=== PATIENT | female | born 1960 | race Caucasian/White ===

== ENCOUNTER → 2018-04-05 | Outpatient (CLI) | payer OTHER ==
[~2018-04-05] MED LIST: ADDERALL 10 MG10 MG PO; ADULT LOW DOSE81 MG PO; ATORVASTATIN CA20 MG PO; CYCLOBENZAPRINE10 MG PO; LINZESS72 MCG PO; ORPHENADRINE ER PO; PREDNISONE 10 M10 MG PO; PROZAC10 MG PO; THERA M PLUS T1 EAC2 PO; TRAMADOL 50 MG50 MG PO; VITAMIN B-12500 MCG SUBLING; VITAMINC500 PO
[2018-04-05 09:49] LABS: ABSOLUTE EOSINOPHILS 0.1 thou/uL (0.0-0.7); ABSOLUTE LYMPHOCYTES 0.9 thou/uL (0.8-5.3); ABSOLUTE MONOCYTES 0.3 thou/uL (0.0-1.2); BASOPHILS 0.7 %; EOSINOPHILS 1.6 %; HEMATOCRIT 41.8 % (37.0-47.0); LYMPHOCYTES 27.6 %; MCH 33.5 pg (26.0-34.0); MCHC 33.4 g/dL (28.0-37.0); MCV 100.2 fL (80.0-100.0); MONOCYTES 9.1 %; MPV 7.3 fl. (7.2-11.1); NUCLEATED RBCS 0 /100WBC; PLATELET COUNT* 267 thou/uL (150-400); RBC 4.17 mil/uL (4.20-5.00); RDW-CV 13.6 % (10.5-14.5); WBC 3.3 thou/uL (4.0-11.0)
[2018-04-05 10:04] LABS: ALBUMIN 4.2 g/dL (3.4-5.0); ALKALINE PHOSPHATASE 78 U/L (46-116); ANION GAP 7 mmol/L (7-16); BUN 6 mg/dL (7-18); CALCIUM 8.6 mg/dL (8.5-10.1); CHLORIDE 102 mmol/L (98-107); CHOLESTEROL 239 mg/dL (<200); CO2 32 mmol/L (21-32); CREATININE 0.7 mg/dL (0.6-1.3); GLUCOSE 80 mg/dL (70-99); HDL CHOLESTEROL 96 mg/dL (>40); LDL CHOLESTEROL 135 mg/dL (<100); POTASSIUM 3.8 mmol/L (3.5-5.1); SGOT 61 U/L (15-37); SGPT 74 U/L (30-65); SODIUM 141 mmol/L (136-145); TC:HDL 2.5 Ratio (Not establshd); TOTAL BILIRUBIN 0.3 mg/dL (<0.1-1.0); TOTAL PROTEIN 7.6 g/dL (6.4-8.2); TRIGLYCERIDE 40 mg/dL (<150); VLDL 8 mg/dL (<40)
[2018-04-05 10:08] LABS: SERUM ASSESSMENT Clear
[2018-04-06 02:06] LABS: HEPATITIS B SURFACE AG Negative (Negative)
== END ==
LOC: M.LAB 09:12
PROVIDERS: Family Medicine
DX: R07.9 Chest pain, unspecified (principal); R05 Cough; F41.1 Generalized anxiety disorder

== ENCOUNTER → 2018-04-10 | Outpatient (CLI) | payer OTHER | LOC: M.ULTRA 07:22 | DX: Z12.31 Encounter for screening mammogram for malignant neoplasm of breast (principal); R79.89 Other specified abnormal findings of blood chemistry; R74.8 Abnormal levels of other serum enzymes ==

== ENCOUNTER → 2018-04-10 | Outpatient (CLI) | payer OTHER | LOC: M.CT 07:27 | DX: Z13.6 Encounter for screening for cardiovascular disorders (principal) ==

== ENCOUNTER → 2018-05-23 | Outpatient (CLI) | payer OTHER ==
[2018-05-23 15:53] LABS: ALBUMIN 4.4 g/dL (3.4-5.0); DIRECT BILIRUBIN 0.1 mg/dL (<0.1-0.3); TOTAL BILIRUBIN 0.3 mg/dL (<0.1-1.0); TOTAL PROTEIN 7.7 g/dL (6.4-8.2)
== END ==
LOC: M.LAB 15:25
PROVIDERS: Family Medicine
DX: R74.8 Abnormal levels of other serum enzymes (principal)

== ENCOUNTER 2018-06-12 11:27 | Inpatient (IN) | payer OTHER ==
[~2018-06-12] VITALS: Ht 170.2 cm; Wt 69.5 kg
[2018-06-12 11:32] VITALS: BP 158/89
[2018-06-12] MEDS ORDERED: PREDNISONE 10 M10 MG PO (11:36)
[2018-06-12] MEDS ORDERED: ORPHENADRINE ER PO (11:37)
[2018-06-12 12:01] LABS: ABSOLUTE LYMPHOCYTES 1.2 thou/uL (0.8-5.3); ABSOLUTE MONOCYTES 0.9 thou/uL (0.0-1.2); ABSOLUTE NEUTROPHILS 5.3 thou/uL (1.6-8.1); BASOPHILS 0.5 %; EOSINOPHILS 0.3 %; HEMATOCRIT 47.1 % (37.0-47.0); HEMOGLOBIN 15.7 gm/dL (12.0-15.0); LYMPHOCYTES 15.9 %; MCH 33.6 pg (26.0-34.0); MCHC 33.4 g/dL (28.0-37.0); MCV 100.7 fL (80.0-100.0); MONOCYTES 11.8 %; NUCLEATED RBCS 0 /100WBC; PLATELET COUNT* 340 thou/uL (150-400); POLYS 71.5 %; RBC 4.68 mil/uL (4.20-5.00); RDW-CV 13.2 % (10.5-14.5); WBC 7.5 thou/uL (4.0-11.0)
[2018-06-12 12:13] LABS: PROTIME 10.1 Seconds (9.20-11.50)
[2018-06-12 12:14] LABS: CALCIUM 9.4 mg/dL (8.5-10.1); CREATININE 0.8 mg/dL (0.6-1.3); POTASSIUM 3.6 mmol/L (3.5-5.1)
[2018-06-12 12:20] LABS: ALBUMIN 4.4 g/dL (3.4-5.0); TOTAL BILIRUBIN 0.4 mg/dL (<0.1-1.0); TOTAL PROTEIN 8.2 g/dL (6.4-8.2); TROPONIN-I LEVEL 0.07 ng/mL (<0.06)
[2018-06-12 13:00] LABS: URINE BILIRUBIN NEGATIVE (Negative); URINE BLOOD NEGATIVE (Negative); URINE CLARITY CLEAR; URINE COLOR YELLOW; URINE GLUCOSE-RANDOM NEGATIVE (Negative); URINE KETONES NEGATIVE (Negative); URINE LEUKOCYTES-REFLEX 1+ (Negative); URINE NITRITE-REFLEX NEGATIVE (Negative); URINE PROTEIN NEGATIVE (Negative); URINE SPECIFIC GRAVITY 1.015 (1.005-1.030); URINE UROBILINOGEN 0.2 E.U./dl (0.2-1.0)
[2018-06-12 13:12] LABS: SQUAMOUS 0-3 Few /LPF (0-3); URINE WBC-REFLEX 0-5 Rare /HPF (0-5)
[2018-06-12 13:13] LABS: BACTERIA-REFLEX None Seen /HPF (None Seen); CRYSTALS None Seen /LPF (None Seen); HYALINE CASTS 0-3 Few /LPF (None Seen); MUCUS 0-3 Light strn/LPF (None Seen); URINE RBC 0-2 Rare /HPF (0-2)
[2018-06-12 13:28] VITALS: BP 154/78
[2018-06-12 13:50] VITALS: BP 157/83
[2018-06-12 14:00] VITALS: BP 164/84
[2018-06-12] MEDS ORDERED: TRAMADOL 50 MG50 MG PO (14:42)
[2018-06-12] MEDS ORDERED: VITAMIN B-12500 MCG SUBLING (14:43)
[2018-06-12] MEDS ORDERED: ADDERALL 10 MG10 MG PO (14:44)
[2018-06-12] MEDS ORDERED: PROZAC10 MG PO (14:45)
[2018-06-12] MEDS ORDERED: VITAMINC500 PO (14:45)
--- NOTE | 2018-06-12 17:02 | EKG ---
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: : 1960 Requested By: Harpreet Hui Order Number: [id number] MD: Manuel Canchola Measurements Intervals [place] Rate: 79 P: 67 SD: 146 QRS: 45 QRSD: 82 T: 36 QT: 367 QTc: 421 Interpretive Statements Sinus rhythm Probable left atrial enlargement Baseline wander in lead(s) V6 No previous ECG available for comparison Electronically Signed On 06-12-2018 17:02:24 CDT by Manuel Canchola [email or web address] <ELECTRONICALLY SIGNED> By: Manuel Canchola MD, [facility] 06/12/18 1702 1138 113 Manuel Canchola MD, [facility] /EPI
[2018-06-12 20:00] VITALS: BP 131/80
[2018-06-12] MEDS ORDERED: LINZESS72 MCG PO (20:12)
[2018-06-13] VITALS: BP 137/78
[2018-06-13 04:00] VITALS: BP 140/87
[2018-06-13 08:15] VITALS: BP 132/81
[2018-06-13 11:25] LABS: ANION GAP 4 mmol/L (7-16); BUN 17 mg/dL (7-18); CALCIUM 8.1 mg/dL (8.5-10.1); CHLORIDE 102 mmol/L (98-107); CHOLESTEROL 209 mg/dL (<200); CO2 30 mmol/L (21-32); CREATININE 0.7 mg/dL (0.6-1.3); GLUCOSE 85 mg/dL (70-99); HDL CHOLESTEROL 73 mg/dL (>40); LDL CHOLESTEROL 123 mg/dL (<100); MAGNESIUM 2.2 mg/dL (1.8-2.4); PHOSPHORUS* 3.2 mg/dL (2.5-4.9); POTASSIUM 3.2 mmol/L (3.5-5.1); SODIUM 136 mmol/L (136-145); TC:HDL 2.9 Ratio (Not establshd); TRIGLYCERIDE 69 mg/dL (<150); VLDL 14 mg/dL (<40)
[2018-06-13 11:26] LABS: SERUM ASSESSMENT Clear
[2018-06-13 12:22] VITALS: BP 123/70
[2018-06-13 16:04] VITALS: BP 122/71
--- NOTE | 2018-06-13 17:11 | 2DMMODE ---
[place] [address] 2 D/M-MODE ECHOCARDIOGRAM Name: ISMAEL LAROSE Room: [place] [address] ADM IN Geraldine#: [id number] Admission: 06/12/18 Attend Phys: Sameer Olguin Discharge: Date of : 62 Date of Service: 06/13/18 1711 Report #: [id number] THIS REPORT FOR: //name// APPROVED REPORT Study performed: 06/13/2018 15:16:30 EXAM: Comprehensive 2D, Doppler, and color-flow Echocardiogram Patient Location: In-Patient Room #: [facility] Status: routine BSA: 1.80 HR: 93 bpm BP: 123/70 mmHg Rhythm: NSR Other Information Study Quality: Good Indications CVA/TIA Echo Enhancing Agent Indication: Rule out Shunt Agent(s) / Amount(s) Used: Agitated Saline 10 cc 2D Dimensions IVSd: 13.37 (7-11mm) LVOT Diam: 21.53 (18-24mm) LVDd: 32.89 mm PWd: 11.61 (7-11mm) Ascending Ao: 30.46 (22-36mm) LVDs: 22.45 (25-40mm) Aortic Root: 31.34 mm Volumes Left Atrial Volume (Systole) LA ESV Index: 14.70 mL/m2 Aortic Valve AoV Peak Galileo.: 1.38 m/s AO Peak Gr.: 7.56 mmHg LVOT Max P.26 mmHg AO Mean Gr.: 4.03 mmHg LVOT Mean P.26 mmHg LVOT Max V: 1.35 m/s AO V2 VTI: 21.65 cm LVOT Mean V: 0.81 m/s MEETA (VTI): 3.74 cm2 LVOT V1 VTI: 22.23 [place] [address] 2 D/M-MODE ECHOCARDIOGRAM Name: ISMAEL LAROSE Room: [address] IN .R.#: [id number] Admission: 06/12/18 Attend Phys: Sameer Olguin Discharge: Date of : 62 Date of Service: 06/13/18 1711 Report #: [id number] Mitral Valve E/A Ratio: 1.04 MV Decel. Time: 169.90 ms MV E Max Galileo.: 0.59 m/s MV PHT: 49.27 ms MVA (PHT): 4.47 cm2 TDI E/Lateral E': 5.36 E/Medial E': 6.56 Medial E' Galileo.: 0.09 m/s Lateral E' Galileo.: 0.11 m/s Pulmonary Valve PV Peak Galileo.: 1.09 m/s PV Peak Gr.: 4.73 mmHg Left Ventricle The left ventricle is normal size. There is normal LV segmental wall motion. Mild concentric left ventricular hypertrophy. Left ventricular systolic function is normal. The left ventricular ejection fraction is within the normal range. LVEF is 60-65%. The left ventricular diastolic function is normal. Right Ventricle The right ventricle is normal size. The right ventricular systolic function is normal. Atria The left atrium size is normal. Interatrial septum is intact without evidence of ASD or PFO.negative bubble study The right atrium size is normal. Aortic Valve The aortic valve is normal in structure. No aortic regurgitation is present. There is no aortic valvular stenosis. Mitral Valve The mitral valve is normal in structure. There is no mitral valve regurgitation noted. No evidence of mitral valve stenosis. Tricuspid Valve The tricuspid valve is normal in structure. Trace tricuspid regurgitation. Unable to assess PA pressure. Pulmonic Valve The pulmonary valve is normal in structure. There is no pulmonic [place] [address] 2 D/M-MODE ECHOCARDIOGRAM Name: JOCELYNESHAYISMAEL Room: [address] IN .R.#: [id number] Admission: 06/12/18 Attend Phys: Sameer Olguin Discharge: Date of : 62 Date of Service: 06/13/18 1711 Report #: [id number] Great Vessels The aortic root is normal in size. IVC is normal in size and collapses >50% with inspiration. Pericardium There is no pericardial effusion. <Conclusion> LVEF is 60-65%. There is normal LV segmental wall motion. There is no aortic valvular stenosis. No aortic regurgitation is present. Interatrial septum is intact without evidence of ASD or PFO.negative bubble study <ELECTRONICALLY SIGNED> By: Vikas Mitchell MD, FACC 06/13/181710 10 10 Vikas Mitchell MD, FACC /INF
[2018-06-14] VITALS: BP 124/81
[2018-06-14 04:00] VITALS: BP 140/86
[2018-06-14 08:00] VITALS: BP 130/77
[2018-06-14] MEDS ORDERED: CYCLOBENZAPRINE10 MG PO (11:32)
[2018-06-14] MEDS ORDERED: ADULT LOW DOSE81 MG PO (11:33)
[2018-06-14] MEDS ORDERED: ATORVASTATIN CA20 MG PO (11:33)
[2018-06-14] MEDS ORDERED: THERA M PLUS T1 EAC2 PO (11:34)
[2018-06-14 12:36] VITALS: BP 118/70
[2018-06-14 13:16] VITALS: BP 118/70
--- NOTE | 2018-06-14 19:14 | CON ---
[address] [address] CONSULTATION Name: JOCELYNESHAYISMAEL Rupinder Room: [address] IN M.R.#: [id number] Admission: 06/12/18 Attend Phys: Hamzah Hernández Discharge: 06/14/18 Date of : 62 Report #: [id number] THIS REPORT FOR: //name// CC: Marija Suha Olguin DATE OF SERVICE: 06/12/2018 HISTORY OF PRESENT ILLNESS: This is a 58-year-old female patient who was evaluated by me for an episode of speech difficulty. History is poorly defined. It looks like she was able to speak throughout the record, but the word was just not coming out properly. It lasted a few hours. It came spontaneously, then resolved spontaneously. She is on multiple psychotropic medications. She is on Prozac for a long time. She is on Adderall for a year and a half and recently she developed pain in the neck, which radiates down to the right upper extremity and she was given tramadol. REVIEW OF SYSTEMS: Indicate that she has pain in the neck, which radiates down to the right upper extremity. She had speech difficulty. She is on multiple medications as summarized above, these are the psychotropic medication. She never had this kind of symptom before. She has no history of migraine headache. A 14-point review of systems was carried out and appears mostly noncontributory. PAST MEDICAL HISTORY: Positive for attention deficit disorder and depression. FAMILY HISTORY: Negative for early age stroke. SOCIAL HISTORY: The history I got from her was different than summarized in the patient's note, so I have to go and ask her again. PHYSICAL EXAMINATION: Indicate the patient is alert, responsive, able to follow simple and complex commands. Cranial nerve examination 2-12 is unremarkable. Strength, sensation, reflexes and tone is symmetrical. There is no meningeal sign in this patient. I could not look at the patient's fundus. The patient is moderately built individual. She does not have any dysmorphic features of eyes, ears and face. Her blood pressure is 164/84, respirations 16, pulse is 71, temperature is 98.5. CT scan of the head was unremarkable. IMPRESSION: This patient presents with the symptoms, which can be transient ischemic attack or some focal seizure. She is on multiple psychotropic medications. That question needs to be addressed in this patient. It looks like she is going to get a banana bag. These kind of symptoms can occur when psychotropic medication are mixed with alcohol, especially when she is taking multiple psychotropic medications, many of [place] [address] CONSULTATION Name: THUANSRIDHARISMAEL Rupinder Room: [address] IN M.R.#: [id number] Admission: 06/12/18 Attend Phys: Hamzah Hernández Discharge: 06/14/18 Date of : 62 Report #: [id number] RECOMMENDATIONS: 1. We will get a carotid Doppler done. 2. MRI is already ordered. 3. We will get a TSH, vitamin B12 done. 5. We will await this workup and go from here. Thank you very much for this referral and if you have any question, please feel free to contact me. <ELECTRONICALLY SIGNED> By: Barrett Ramires MD 06/14/18 1914 1626 [id number] Ramires MD /nt
--- NOTE | 2018-06-14 19:14 | EEG ---
[address] [address] EEG STUDY REPORT Name: ISMAEL LAROSE Room: [address] IN M.R.#: [id number] Admission: 06/12/18 Attend Phys: Hamzah Hernández Discharge: 06/14/18 Date of : 62 Report #: [id number] THIS REPORT FOR: //name// CC: Marija Suha Olguin DATE OF SERVICE: 06/13/2018 This patient is being evaluated for an episode of speech difficulty. EEG is masked by a lot of muscle artifact because the patient is unable to relax. That makes the interpretation of this EEG difficult. Background activity does appear to be about 9 Hz and 30 microvolts. The patient became drowsy that is associated with bilateral slowing and vertex sharp waves. Photic stimulation is unremarkable. No active epileptiform activity was noticed during this record. IMPRESSION: Difficult to interpret this electroencephalogram because a lot of muscle artifact is present. No active epileptiform activity appeared to be present. Thank you very much for this referral. <ELECTRONICALLY SIGNED> By: Barrett Ramires MD 06/14/18 1914 1559 [id number] Ramires MD /nt
== END 2018-06-14 14:40 | disposition home or self-care (01) | DRG 69 ==
LOC: M.ERS 11:27 → M.TBA-ER 12:28 → M.2W 12:28
PROVIDERS: Family Medicine; ADMIT Internal Medicine
DX: G45.9 Transient cerebral ischemic attack, unspecified (principal); N39.0 Urinary tract infection, site not specified; F32.9 Major depressive disorder, single episode, unspecified; F41.9 Anxiety disorder, unspecified; F17.290 Nicotine dependence, other tobacco product, uncomplicated; G62.1 Alcoholic polyneuropathy; T50.905A Adverse effect of unspecified drugs, medicaments and biological substances, initial encounter; I05.0 Rheumatic mitral stenosis; E87.6 Hypokalemia; F10.10 Alcohol abuse, uncomplicated; Z79.82 Long term (current) use of aspirin; Z79.899 Other long term (current) drug therapy

== ENCOUNTER → 2018-06-26 | Outpatient (CLI) | payer OTHER | LOC: M.RAD 11:38 | DX: M47.22 Other spondylosis with radiculopathy, cervical region (principal); M43.12 Spondylolisthesis, cervical region ==

== ENCOUNTER → 2018-07-02 | Outpatient (CLI) | payer OTHER | LOC: M.MRI 16:02 | DX: M50.123 Cervical disc disorder at C6-C7 level with radiculopathy (principal); M48.02 Spinal stenosis, cervical region ==

== ENCOUNTER → 2018-08-06 | Outpatient (CLI) | payer OTHER ==
[~2018-08-06] MED LIST changes: +B12INJ PO; -PROZAC10 MG PO; +PROZAC20 MG PO; +ZYRTEC10 M5 PO
--- NOTE | ~2018-08-06 | PAINCON ---
[address] [address] PAIN MANAGEMENT CONSULTATION Name: CHRISTENSENISMAEL J [id number] Admission: 08/06/18 Attend Phys: Justin Copeland MD Discharge: Date of : 62 Report #: [id number] THIS REPORT FOR: //name// CC: Marija Copeland DATE OF SERVICE: 08/06/2018 CHIEF COMPLAINT: Neck pain. HISTORY OF PRESENT ILLNESS: The patient is a 58-year-old female who has been referred to the pain clinic for evaluation. The patient has been experiencing pain in her right arm as well as her right shoulder. This has been problematic since May of this year. She has noticed some weakness in this arm. States that it falls asleep. She has pain, which she describes as quite severe. Notes that the pain radiates down into her arm and down into her fingers. She has tried tramadol. She has also tried nonsteroidal anti-inflammatory medications with little overall benefit. She admits to an intermittent dizziness when she sits up from lying down. This has been going on for a number of years. She has been evaluated for possible transient ischemic attack. The patient has not had surgery on her neck. Describes her discomfort as continuous, constant, shooting, aching, throbbing, sharp and stabbing. Rates it as an 8/10 today, can rise to a level of 9/10, depend on her level of activity. Also, does note some pain and discomfort in the right scapular area as well. ALLERGIES: THE PATIENT HAS LISTED TRAMADOL AN ALLERGY. TRAMADOL -- CAUSE HER HEAD SPIN. CURRENT MEDICATIONS: Adderall 10 mg b.i.d., aspirin 81 mg, Zyrtec 10 mg, Prozac 20 mg, vitamin B12 1000 mg. PAST MEDICAL HISTORY: 1. Right arm pain secondary to pinched nerve. 2. Anxiety. 3. Depression. 4. Attention deficit hyperactivity disorder, predominantly inattentive type. 5. Chronic sinusitis. 6. Colon polyps. 7. Attention deficit disorder. 8. Anxiety disorder. PAST SURGICAL HISTORY: Appendectomy, colonoscopy. 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 REVIEW OF SYSTEMS: Generally in good health, numbness [place] [address] PAIN MANAGEMENT CONSULTATION Name: ISMAEL CHRISTENSEN Rupinder Room: [facility]#: [id number] Admission: 08/06/18 Attend Phys: Justin Copeland MD Discharge: Date of : 62 Report #: [id number] LABORATORY DATA: 1. MRI of the cervical spine dated 07/02/2018, C4-C5, no disk protrusion, canal stenosis or foraminal narrowing, unchanged. C5/C6 minimal broad-based disk bulge with foraminal component likely causing mild bilateral foraminal narrowing, unchanged. 2. C6-C7. Small broad-based disk bulge with a superimposed right foraminal protrusion that causes moderate right-sided foraminal narrowing. 3. C7/T1 no disk protrusion canal stenosis or foraminal narrowing. PAIN CLINIC ASSESSMENT/PQRS: 1. The patient is not being treated for rheumatoid arthritis or osteoarthritis. 2. Height 5 feet 7 inches, weight 149 pounds, BMI is 23. 3. Vital Signs: Blood pressure 135/74, heart rate 74, respiratory rate 16, room air saturation is 98%, temperature 98.2. 4. Pain score 8/10. 5. Fall risk. The patient has not fallen in the last 3 months. 6. Blood thinner. The patient is not on a blood thinning medication. 7. Hypertension. The patient has not been treated for hypertension. 8. Opioid greater than 6 weeks. The patient is not on an opioid medication. 9. Risk assessment tool, low for opioid use. 10. Functional assessment tool 49/70. 11. Recreational drug use. The patient denies use of recreational drugs. 12. Tobacco: The patient denies use of tobacco. 13. Alcohol: The patient uses alcohol occasionally. PHYSICAL EXAMINATION: GENERAL: The patient is a well-developed, well-nourished white female. Appears her stated age. She is alert and oriented x3. Affect is appropriate. Speech is fluent. HEAD, EYES, EARS, NOSE, AND THROAT: Normocephalic, atraumatic. Extraocular muscles intact. Sclerae nonicteric. Mucous membranes are moist. NECK: Without adenopathy or JVD. The patient has pain and discomfort in the right shoulder area, area of the scapula on the right. Has pain and discomfort, which is radiating down the right arm into the forearm down into her fingers with numbness and tingling in this area. Perception of 4+/5 muscle strength. Left muscle strength 5/5. Deep tendon reflexes are +1 on the right, +2 on the left. HEART: Regular rate. S1, S2. ABDOMEN: Nontender. Bowel sounds present. EXTREMITIES: Lower extremity muscle strength is judged to be 5/5 for the major muscle groups. The patient is able to stand on her toes, walk on her heels. Zoltan's sign negative, Jaylan sign negative. The patient is able to lean forward left and right. Lumbar extension all without significant problems. IMPRESSION: [facility] [address] [place] [address] PAIN MANAGEMENT CONSULTATION Name: ISMAEL CHRISTENSEN [facility] [id number] Admission: 08/06/18 Attend Phys: Justin Copeland MD Discharge: Date of : 62 Report #: [id number] 1. Cervical radiculopathy involving the right arm with MRI findings could corroborating nerve irritation with stenosis in the right side. 2. Right arm pain secondary to pinched nerve. 3. Anxiety. 4. Depression. 5. Attention deficit hyperactivity disorder, predominantly inattentive type. 6. Chronic sinusitis. 7. Colon polyps. 8. Attention deficit disorder. 9. Anxiety disorder. RECOMMENDATIONS: We discussed treatment options with the patient. Risks and benefits of an epidural steroid injection in the cervical area were discussed. Possible complications of the procedure were reviewed. They could include but are not limited to infection, worsening of pain, no improvement in pain and the patient will follow up in the pain clinic at which time she will then undergo a cervical epidural steroid to help quell the pain and discomfort which she is experiencing. We would like to thank you for letting us to participate in her care. We hope she continues to improve. By: 1010 1120N. Clifton Copeland MD /PMT
== END ==
LOC: M.PC 04:45
DX: M54.12 Radiculopathy, cervical region (principal); J32.9 Chronic sinusitis, unspecified; M79.601 Pain in right arm; K63.5 Polyp of colon; F41.9 Anxiety disorder, unspecified; F32.9 Major depressive disorder, single episode, unspecified; F90.0 Attention-deficit hyperactivity disorder, predominantly inattentive type

== ENCOUNTER → 2019-05-20 | Outpatient (CLI) | payer OTHER | LOC: M.RAD 16:19 | DX: Z12.31 Encounter for screening mammogram for malignant neoplasm of breast (principal) ==

== ENCOUNTER → 2019-09-09 | Outpatient (CLI) | payer OTHER ==
[2019-09-09 10:08] LABS: ABSOLUTE EOSINOPHILS 0.1 thou/uL (0.0-0.7); ABSOLUTE MONOCYTES 0.6 thou/uL (0.0-1.2); ABSOLUTE NEUTROPHILS 8.1 thou/uL (1.6-8.1); BASOPHILS 0.3 %; EOSINOPHILS 0.6 %; HEMATOCRIT 41.2 % (37.0-47.0); HEMOGLOBIN 14.1 gm/dL (12.0-15.0); LYMPHOCYTES 10.1 %; MCH 33.8 pg (26.0-34.0); MCHC 34.2 g/dL (28.0-37.0); MONOCYTES 6.5 %; MPV 7.1 fl. (7.2-11.1); NUCLEATED RBCS 0 /100WBC; PLATELET COUNT* 288 thou/uL (150-400); POLYS 82.5 %; RBC 4.16 mil/uL (4.20-5.00); RDW-CV 12.9 % (10.5-14.5); WBC 9.8 thou/uL (4.0-11.0)
[2019-09-09 10:22] LABS: ALBUMIN 3.8 g/dL (3.4-5.0); ALKALINE PHOSPHATASE 86 U/L (46-116); ANION GAP 10 mmol/L (7-16); BUN 7 mg/dL (7-18); CALCIUM 8.6 mg/dL (8.5-10.1); CHLORIDE 102 mmol/L (98-107); CHOLESTEROL 220 mg/dL (<200); CO2 29 mmol/L (21-32); CREATININE 0.6 mg/dL (0.6-1.3); GLUCOSE 84 mg/dL (70-99); HDL CHOLESTEROL 69 mg/dL (>40); LDL CHOLESTEROL 140 mg/dL (<100); POTASSIUM 3.7 mmol/L (3.5-5.1); SGOT 40 U/L (15-37); SGPT 45 U/L (30-65); SODIUM 141 mmol/L (136-145); TC:HDL 3.2 Ratio (Not establshd); TOTAL BILIRUBIN 0.4 mg/dL (<0.1-1.0); TOTAL PROTEIN 7.2 g/dL (6.4-8.2); TRIGLYCERIDE 59 mg/dL (<150); VLDL 12 mg/dL (<40)
[2019-09-09 10:23] LABS: SERUM ASSESSMENT Clear
== END ==
LOC: M.LAB 09:07
PROVIDERS: Internal Medicine
DX: Z01.419 Encounter for gynecological examination (general) (routine) without abnormal findings (principal); Z11.59 Encounter for screening for other viral diseases; F41.1 Generalized anxiety disorder

== ENCOUNTER → 2019-12-04 | Outpatient (CLI) | payer OTHER | LOC: M.LAB 13:56 | DX: Z20.828 Contact with and (suspected) exposure to other viral communicable diseases (principal) ==

== ENCOUNTER → 2020-08-18 | Outpatient (CLI) | payer OTHER | LOC: M.RAD 07:30 | PROVIDERS: ATTEND Internal Medicine | DX: Z12.31 Encounter for screening mammogram for malignant neoplasm of breast (principal) ==

== ENCOUNTER → 2021-03-18 | Outpatient (CLI) | payer OTHER ==
[2021-03-18 09:39] LABS: ABSOLUTE LYMPHOCYTES 0.9 thou/uL (0.8-5.3); ABSOLUTE MONOCYTES 0.4 thou/uL (0.0-1.2); ABSOLUTE NEUTROPHILS 2.9 thou/uL (1.6-8.1); BASOPHILS 0.4 %; EOSINOPHILS 0.8 %; HEMATOCRIT 41.7 % (37.0-47.0); HEMOGLOBIN 14.5 gm/dL (12.0-15.0); LYMPHOCYTES 21.9 %; MCH 33.9 pg (26.0-34.0); MCHC 34.7 g/dL (28.0-37.0); MCV 97.7 fL (80.0-100.0); MONOCYTES 8.9 %; NUCLEATED RBCS 0 /100WBC; PLATELET COUNT* 281 thou/uL (150-400); RBC 4.27 mil/uL (4.20-5.00); RDW-CV 13.3 % (10.5-14.5); WBC 4.2 thou/uL (4.0-11.0)
[2021-03-18 09:55] LABS: ALBUMIN 4.6 g/dL (3.4-5.0); ALKALINE PHOSPHATASE 106 U/L (46-116); ANION GAP 8 mmol/L (7-16); BUN 8 mg/dL (7-18); CALCIUM 8.9 mg/dL (8.5-10.1); CHLORIDE 100 mmol/L (98-107); CHOLESTEROL 243 mg/dL (<200); CO2 31 mmol/L (21-32); CREATININE 0.6 mg/dL (0.6-1.3); GLUCOSE 86 mg/dL (70-99); HDL CHOLESTEROL 89 mg/dL (>40); LDL CHOLESTEROL 145 mg/dL (<100); SGOT 35 U/L (15-37); SGPT 40 U/L (30-65); SODIUM 139 mmol/L (136-145); TC:HDL 2.7 Ratio (Not establshd); TOTAL BILIRUBIN 0.5 mg/dL (<0.1-1.0); TRIGLYCERIDE 48 mg/dL (<150); VLDL 10 mg/dL (<40)
[2021-03-18 10:03] LABS: SERUM ASSESSMENT Clear
== END ==
LOC: M.LAB 09:25
PROVIDERS: ATTEND Internal Medicine
DX: K59.09 Other constipation (principal); E78.2 Mixed hyperlipidemia; K63.5 Polyp of colon

== ENCOUNTER → 2021-05-10 | Outpatient (CLI) | payer OTHER | LOC: M.CT 11:12 | PROVIDERS: ATTEND Internal Medicine | DX: G44.52 New daily persistent headache (NDPH) (principal) ==

== ENCOUNTER 2021-10-16 10:25 | Inpatient (IN) | payer OTHER ==
[~2021-10-16] VITALS: Ht 167.6 cm; Wt 68.0 kg
--- NOTE | ~2021-10-16 | CON ---
[address] [address] CONSULTATION Name: ISMAEL CHRISTENSEN Room: [address] IN M.Geraldine.#: [id number] Admission: 10/16/21 Attend Phys: Umang Crook Discharge: 10/17/21 Date of : 62 Report #: [id number] THIS REPORT FOR: cc: Samson Brambila MD, Meng MD Blick, David R. MD [facility] ~ cc: Samson Brambila MD DATE OF CONSULTATION: 10/17/2021 CARDIOLOGY CONSULTATION HISTORY OF PRESENT ILLNESS: The patient is a 61-year-old white female who I was asked to see in the hospital today after she complained of chest pain. The patient has no previous history of heart disease. She has had no previous cardiac evaluation. She notes, however, for the past few weeks, she has had intermittent burning in her chest. It is not related to exertion or meals. She has actually occurred at night. There is no radiation of the pain. No associated shortness of breath, diaphoresis, nausea. She has had no fever or cough. She denies any belching episode. She has taken antacids in the past and did not seem to help. Two days ago, she was at home when the burning was there all day long in her chest. Yesterday, her finally brought her to the Emergency Room and she was admitted. She continued to have the pressure off and on all throughout the day. She denies exertional dyspnea. She notes occasional irregular heartbeat, but no syncope. PAST MEDICAL HISTORY: She has had appendectomy. She was told she had a murmur in the past. No history of hypertension. She has borderline hyperlipidemia. No diabetes. CURRENT MEDICATIONS: Only medications include Prozac. ALLERGIES: She has no known drug allergies. FAMILY HISTORY: Her mom had a stroke. Father had stents, coronary. SOCIAL HISTORY: She is . She and her live here in [place]. Her is retired. 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. She quit smoking 20 years ago, rarely drinks alcohol. REVIEW OF SYSTEMS: She has had no history of stroke, asthma, liver disease, kidney disease, cancer, psychiatric illness, chronic skin condition. PHYSICAL EXAMINATION: GENERAL: Revealed a middle-aged female, appeared in no distress, [place] [address] CONSULTATION Name: ISMAEL CHRISTENSEN Room: [address]#: [id number] Admission: 10/16/21 Attend Phys: Umang Crook Discharge: 10/17/21 Date of : 62 Report #: [id number] VITAL SIGNS: Her blood pressure was 130/60, pulse 60. She is afebrile. HEENT: She was anicteric. Conjunctivae pink. Mucous membranes moist. NECK: Veins are not distended. No carotid bruits. Neck is supple. CHEST: Clear to auscultation. HEART: Regular rate and rhythm. No murmur. ABDOMEN: Soft. EXTREMITIES: Had no edema. Posterior tibial pulse 2+ bilaterally. SKIN: Cool and dry. NEUROLOGIC: Nonfocal. LABORATORY DATA: Her ECG on admission showed a sinus rhythm with no ST or T-wave changes. Her workup in the Emergency Room, she had a portable chest x-ray that showed normal heart size and clear lung newsome. She actually had a CT scan of the head performed in 2020 that showed no acute abnormality. Carotid Doppler study in 2018 here at [facility] was performed with MRA scanning of the carotid arteries, although the results could not be obtained. Her lab work in the Emergency Room, she had creatinine 0.7, glucose 89. High sensitivity troponin was 217, repeat was 170, cholesterol 195, triglyceride 49, HDL 70, LDL 116. Previous TSH in 2020 is 1.5. Hemoglobin 14.7. Her COVID antigen stat test was negative. IMPRESSION AND RECOMMENDATIONS: 1. Dyspepsia. Suspect noncardiac. Recommend stress echocardiogram. 2. Hyperlipidemia. Recommend diet and exercise. 3. Previous tobacco abuse. By: [id number] Canchola MD, FACC /nt
[2021-10-16 10:28] VITALS: BP 157/80
[2021-10-16 11:13] LABS: CALCIUM 8.8 mg/dL (8.5-10.1); CREATININE 0.7 mg/dL (0.6-1.3); POTASSIUM 3.9 mmol/L (3.5-5.1)
[2021-10-16 11:19] LABS: ABSOLUTE EOSINOPHILS 0.2 thou/uL (0.0-0.7); ABSOLUTE MONOCYTES 0.5 thou/uL (0.0-1.2); ABSOLUTE NEUTROPHILS 4.6 thou/uL (1.6-8.1); BASOPHILS 0.5 %; EOSINOPHILS 2.9 %; HEMATOCRIT 43.8 % (37.0-47.0); HEMOGLOBIN 14.7 gm/dL (12.0-15.0); LYMPHOCYTES 16.3 %; MCH 32.7 pg (26.0-34.0); MCHC 33.6 g/dL (28.0-37.0); MCV 97.4 fL (80.0-100.0); MONOCYTES 7.6 %; MPV 7.4 fl. (7.2-11.1); NUCLEATED RBCS 0 /100WBC; PLATELET COUNT* 310 thou/uL (150-400); POLYS 72.7 %; RDW-CV 13.2 % (10.5-14.5); WBC 6.3 thou/uL (4.0-11.0)
[2021-10-16 11:23] LABS: ALBUMIN 4.1 g/dL (3.4-5.0); MAGNESIUM 1.9 mg/dL (1.8-2.4); TOTAL BILIRUBIN 0.5 mg/dL (<0.1-1.0); TOTAL PROTEIN 7.6 g/dL (6.4-8.2)
--- NOTE | 2021-10-16 11:27 | EKG ---
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: : 1960 Requested By: Harpreet Hui Order Number: [id number] MD: Manuel Canchola Measurements Intervals [place] Rate: 70 P: 71 [place]: 158 QRS: 54 QRSD: 87 T: 62 QT: 380 QTc: 410 Interpretive Statements Sinus rhythm Probable left atrial enlargement Compared to ECG 06/12/2018 11:38:37 No significant changes Electronically Signed On 10-16-2021 11:27:27 MOTHER SUPERIOR by Manuel Canchola [email or web address] <ELECTRONICALLY SIGNED> By: Manuel Canchola MD, [facility] 10/16/21 1127 1034 1034 Manuel Canchola MD, [facility] /EPI
[2021-10-16 13:16] VITALS: BP 134/62
[2021-10-16 14:11] LABS: APTT 25.6 Seconds (25.0-31.3); PROTIME 10.3 Seconds (9.20-11.50)
[2021-10-16 15:55] VITALS: BP 138/62
[2021-10-16 20:01] VITALS: BP 120/56
[2021-10-17] VITALS: BP 119/62
[2021-10-17 04:00] VITALS: BP 128/69
[2021-10-17 04:38] LABS: CHOLESTEROL 195 mg/dL (<200); HDL CHOLESTEROL 70 mg/dL (>40); LDL CHOLESTEROL 116 mg/dL (<100); SERUM ASSESSMENT Clear; TC:HDL 2.8 Ratio (Not establshd); TRIGLYCERIDE 49 mg/dL (<150); VLDL 10 mg/dL (<40)
[2021-10-17 08:00] VITALS: BP 131/77
[2021-10-17 11:30] VITALS: BP 129/69
[2021-10-17] MEDS ORDERED: LIPITOR 40 MG T40 M1 PO (13:07)
[2021-10-17 14:18] VITALS: BP 129/69
--- NOTE | 2021-10-17 14:31 | EXE ---
[place] [address] STRESS ECHOCARDIOGRAM Name: ISMAEL CHRISTENSEN Room: [address] IN .R.#: [id number] Admission: 10/16/21 Attend Phys: Bruno Artis Discharge: Date of : 62 Date of Service: 10/17/21 1430 Report #: [id number] THIS REPORT FOR: cc: Samson Brambila MD, Meng MD Blick, David R. MD [facility] ~ APPROVED REPORT Study performed: 10/17/2021 13:20:01 Exam: Stress Echocardiogram Indication: Chest pain Patient Location: In-Patient Stress Nurse: Domi Diego RN Room #: [facility] Supervising Physician: Manuel Canchola MD Status: routine Ht: 5 ft 10 in HR: 62 bpm BP: 127/78 mmHg Rhythm: NSR Medical History Medications: ASA Cardiac Risk Factors: Tobacco History (Current/Recent) Procedure The patient underwent an Exercise Stress Test using the Preet Protocol. Blood pressure, heart rate, and EKG were monitored. An Echocardiogram was performed by timber management technician in four stages in quad fashion. At peak stress, four selected images were obtained and placed side by side with resting images for comparison. Stress Test Details Stress Test: Exercise stress testing was performed using a Preet protocol. HR Resting HR: 62 bpm Max Heart Rate (APMHR): 160 bpm Max HR Achieved: 152 bpm Target HR (85% APMHR): 136 bpm % of APMHR: 95 Recovery HR: 81 bpm HR response to stress: Normal [place] [address] STRESS ECHOCARDIOGRAM Name: ISMAEL CHRISTENSEN Room: [address]#: [id number] Admission: 10/16/21 Attend Phys: Bruno Artis Discharge: Date of : 62 Date of Service: 10/17/21 1430 Report #: [id number] [id number] BP: 127/78 mmHg Max BP: 181/74 mmHg Recovery BP: 156/90 mmHg BP response to stress: Normal blood pressure response to stress. ECG Resting ECG: Sinus Rhythm Stress ECG: Sinus Tachycardia ST Change: None Maximum ST Deviation: 0 mm Arrhythmia: None Recovery ECG: Sinus Rhythm Recovery ST Change: None Recovery ST Deviation: 0 mm Recovery Arrhythmia: None Clinical Reason for Termination: fatigue Exercise duration: 6 min 36 sec Highest Stage Achieved: Stage 3: 3.4 mph at 14% grade. Exercise capacity: 7.76 METs Pre-Stress Echo The resting Echocardiogram showed normal left ventricular contractility with an estimated Ejection Fraction of about 55-60%. The resting echocardiogram demonstrated normal wall motion in all wall segments. Post-Stress Echo The stress Echocardiogram showed normal left ventricular contractility with an estimated Ejection Fraction of about >70%. Compared to rest, there were no stress-induced wall motion abnormalities. Conclusion Clinical Response: Non-ischemic Exercise Capacity: Average Stress ECG Response: Non-ischemic Stress Echo Images: Non-ischemic low risk stress echo for predicting future caridac events. Other Information Study Quality: [place] [address] STRESS ECHOCARDIOGRAM Name: AMPAROISMAEL Rupinder Room: [address]#: [id number] Admission: 10/16/21 Attend Phys: Bruno Artis Discharge: Date of : 62 Date of Service: 10/17/21 1430 Report #: [id number] <Conclusion> low risk stress echo for predicting future caridac events. <ELECTRONICALLY SIGNED> By: Manuel Canchola MD, FACC 10/17/21 143 29 29 Manuel Canchola MD, FACC /INF
--- NOTE | 2021-10-17 14:33 | EKG ---
[place] [address] ELECTROCARDIOGRAM REPORT Name: ISMAEL CHRISETNSEN Room: [address] ADM IN ..#: [id number] Admission: 10/16/21 Attend Phys: Bruno Artis Discharge: Date of : 62 Date of Service: 10/16/21 1729 Report #: [id number] THIS REPORT FOR: //name// [facility] Test Date: 2021-10-16 Test Time: 17:29:56 Pat Name: ISMAEL CHRISTENSEN Department: Room: [address] Gender: F Critical Care Unit Nurse: AF : 1960 Requested By: Bruno Artis Order Number: [id number] Reading MD: Manuel Canchola Measurements Intervals [place] Rate: 66 P: 62 [place]: 159 QRS: 42 QRSD: 95 T: 41 QT: 393 QTc: 412 Interpretive Statements Sinus rhythm Compared to ECG 10/16/2021 10:34:03 no change Electronically Signed On 10-17-2021 14:33:14 OCEAN BIOLOGIST by Manuel Canchola [email or web address] <ELECTRONICALLY SIGNED> By: Manuel Canchola MD, [facility] 10/17/21 1433 1729 1729 Manuel Canchola MD, [facility] /EPI
== END 2021-10-17 14:35 | disposition home or self-care (01) | DRG 311 ==
LOC: M.ERS 10:25 → M.2W 12:23 → M.TBA-ER 12:23 → M.2W 13:21
PROVIDERS: Family Medicine; ADMIT Internal Medicine; ATTEND Internal Medicine
DX: I20.0 Unstable angina (principal); I10 Essential (primary) hypertension; Z20.822 Contact with and (suspected) exposure to COVID-19; K21.9 Gastro-esophageal reflux disease without esophagitis; F32.A Depression, unspecified; E78.5 Hyperlipidemia, unspecified; I25.2 Old myocardial infarction; Z86.73 Personal history of transient ischemic attack (TIA), and cerebral infarction without residual deficits; Z90.49 Acquired absence of other specified parts of digestive tract